=== PATIENT | female | born 2000 | race Caucasian/White ===

== ENCOUNTER 2020-07-06 12:31 | Emergency (ER) | payer MEDICAID ==
[~2020-07-06] VITALS: Ht 160 cm; Wt 56.8 kg
[2020-07-06 12:35] VITALS: BP 113/81
== END 2020-07-06 13:10 | disposition left against medical advice (07) ==
LOC: ER 12:32
DX: F41.9 Anxiety disorder, unspecified (principal); F34.9 Persistent mood [affective] disorder, unspecified; R45.1 Restlessness and agitation; Z72.89 Other problems related to lifestyle
CPT/HCPCS: 99281; 99283

== ENCOUNTER 2023-02-04 11:14 | Emergency (ER) | payer MEDICAID ==
[~2023-02-04] VITALS: Ht 165.1 cm; Wt 65.9 kg
[~2023-02-04 11:14] MED LIST: ANBESOL MM; HYDR50TA65 PO; NO HOME MEDS; PALI6TAB6 PO; TRAZ-256 PO
[2023-02-04 13:52] LABS: URINE HCG NEGATIVE (NEG)
[2023-02-04 14:06] LABS: URINE AMPHETAMINE SCREEN POSITIVE (Neg); URINE BARBITUATE SCREEN NEGATIVE (Neg); URINE BENZODIAZEPINES SCREEN NEGATIVE (Neg); URINE CANNABINOID SCREEN POSITIVE (Neg); URINE COCAINE SCREEN NEGATIVE (Neg); URINE METHADONE SCREEN NEGATIVE (Neg); URINE OPIATE SCREEN NEGATIVE (Neg); URINE PHENCYCLIDINE SCREEN NEGATIVE (Neg)
[2023-02-04] MEDS ORDERED: aripiprazole 400mg suspension ER syringe IM ONE (14:50)
[2023-02-04] MEDS ORDERED: AZIT250T83 PO (16:02)
[2023-02-04] MEDS ORDERED: ARIP15TA3 PO (16:02)
[2023-02-04 16:07] VITALS: BP 110/80; PULSE 102; RESP 16; TEMP 98.4; O2SAT 100
== END 2023-02-04 16:10 | disposition home or self-care (01) ==
LOC: ER 11:15
DX: F20.9 Schizophrenia, unspecified (principal); K04.7 Periapical abscess without sinus; F32.A Depression, unspecified; Z88.1 Allergy status to other antibiotic agents; Z88.8 Allergy status to other drugs, medicaments and biological substances
CPT/HCPCS: 80305; 81025; 99283

== ENCOUNTER 2023-05-16 18:37 | Emergency (ER) | payer MEDICAID ==
[~2023-05-16] VITALS: Ht 162.6 cm; Wt 68.0 kg
[~2023-05-16 18:37] MED LIST changes: +ARIP15TA3 PO
[2023-05-16] MEDS: aripiprazole 400mg suspension ER syringe IM ONE (23:51)
[2023-05-16 23:56] VITALS: BP 132/66; PULSE 95; RESP 18; TEMP 98.2; O2SAT 99
[2023-05-17] MEDS ORDERED: CLIN300C71 PO (00:06)
[2023-05-17] MEDS ORDERED: BENZ11.95 BU (00:06)
== END 2023-05-17 00:09 | disposition home or self-care (01) ==
LOC: ER 18:38
DX: F20.9 Schizophrenia, unspecified (principal); K08.89 Other specified disorders of teeth and supporting structures; Z88.1 Allergy status to other antibiotic agents; Z79.899 Other long term (current) drug therapy
CPT/HCPCS: 96372; 99283

== ENCOUNTER 2023-06-12 21:16 | Emergency (ER) | payer MEDICAID ==
[~2023-06-12] VITALS: Ht 162.6 cm; Wt 70.5 kg
[~2023-06-12 21:16] MED LIST changes: +BENZ11.95 BU
[2023-06-12 21:24] VITALS: BP 120/74; PULSE 116; RESP 18; TEMP 98.1; O2SAT 100
[2023-06-12 21:51] LABS: BASOPHILS # (AUTO) 0.1 X10'3 (0-0.2); BASOPHILS % (AUTO) 0.6 % (0-1); EOSINOPHILS # (AUTO) 0.2 X10'3 (0-0.9); EOSINOPHILS % (AUTO) 2.1 % (0-6); HEMATOCRIT 44.3 % (35.0-45.0); HEMOGLOBIN 14.9 g/dl (12.0-16.0); LYMPHOCYTES # (AUTO) 2.8 X10'3 (1.1-4.8); LYMPHOCYTES % (AUTO) 33.5 % (21-51); MEAN CORPUSCULAR HEMOGLOBIN 30.3 PG (27.0-31.0); MEAN CORPUSCULAR HGB CONC 33.5 g/dL (33.0-36.5); MEAN CORPUSCULAR VOLUME 90.5 FL (78-98); MEAN PLATELET VOLUME 7.3 FL (7.4-10.4); MONOCYTES # (AUTO) 0.6 X10'3 (0-0.9); NEUTROPHILS # (AUTO) 4.8 X10'3 (1.8-7.7); NEUTROPHILS % (AUTO) 56.8 % (42-75); PLATELET COUNT 440 X10'3 (140-440); RED CELL DISTRIBUTION WIDTH 13.1 % (11.5-14.5); WHITE BLOOD COUNT 8.5 X10'3 (4.5-11.0)
[2023-06-12 22:15] LABS: ALBUMIN 3.4 G/DL (3.4-5.0); ANION GAP 6 (8-16); BLOOD UREA NITROGEN 13 MG/DL (7-18); BUN/CREATININE RATIO 11.4 (10.0-20.0); CALCIUM 8.2 MG/DL (8.5-10.1); CHLORIDE 106 MMOL/L (99-107); CREATININE 1.14 MG/DL (0.40-0.90); GLUCOSE 89 MG/DL (70-104); POTASSIUM 3.5 MMOL/L (3.5-5.1); PRO BRAIN NATRIURETIC PEPTIDE 31 PG/ML (0-125); SODIUM 143 MMOL/L (135-145); TOTAL CARBON DIOXIDE 30.6 MMOL/L (24-32); eCRCL 66 ML/MIN; eGFR 59 ML/MIN
== END 2023-06-13 02:09 | disposition left against medical advice (07) ==
LOC: ER 21:17
DX: R07.89 Other chest pain (principal); R06.02 Shortness of breath; R22.1 Localized swelling, mass and lump, neck; Z53.21 Procedure and treatment not carried out due to patient leaving prior to being seen by health care provider
CPT/HCPCS: 36415; 71045; 80048; 83880; 84484; 85025; 93005; 99281

== ENCOUNTER 2023-10-01 10:40 | Emergency (ER) | payer MEDICAID ==
[~2023-10-01] VITALS: Ht 162.6 cm; Wt 68.4 kg
[2023-10-01 10:42] VITALS: TEMP 98.4
[2023-10-01] MEDS ORDERED: DOXY-460 PO (11:28)
[2023-10-01] MEDS: CefTRIAXone 1000mg IM Kit (w/lidocaine diluent) IM ONE (11:47)
[2023-10-01 12:36] VITALS: BP 117/68; PULSE 98; RESP 18; O2SAT 100
[2023-10-01 13:15] LABS: BASOPHILS % (AUTO) 0.6 % (0-1); EOSINOPHILS # (AUTO) 0.1 X10'3 (0-0.9); EOSINOPHILS % (AUTO) 0.8 % (0-6); HEMATOCRIT 41.6 % (35.0-45.0); HEMOGLOBIN 13.8 g/dl (12.0-16.0); LYMPHOCYTES # (AUTO) 2.7 X10'3 (1.1-4.8); MEAN CORPUSCULAR HEMOGLOBIN 30.1 PG (27.0-31.0); MEAN CORPUSCULAR HGB CONC 33.2 g/dL (33.0-36.5); MEAN CORPUSCULAR VOLUME 90.7 FL (78-98); MEAN PLATELET VOLUME 7.7 FL (7.4-10.4); MONOCYTES # (AUTO) 0.8 X10'3 (0-0.9); MONOCYTES % (AUTO) 9.3 % (2-12); NEUTROPHILS # (AUTO) 4.6 X10'3 (1.8-7.7); NEUTROPHILS % (AUTO) 56.3 % (42-75); PLATELET COUNT 436 X10'3 (140-440); RED BLOOD COUNT 4.59 X10'6 (4.20-5.60); RED CELL DISTRIBUTION WIDTH 12.9 % (11.5-14.5); WHITE BLOOD COUNT 8.1 X10'3 (4.5-11.0)
[2023-10-01 13:31] LABS: ALANINE AMINOTRANSFERASE 27 U/L (12-78); ALBUMIN 3.7 G/DL (3.4-5.0); ALBUMIN/GLOBULIN RATIO 0.9 (1.1-1.5); ALKALINE PHOSPHATASE 98 IU/L (46-116); ANION GAP 8 (8-16); ASPARTATE AMINO TRANSFERASE 13 U/L (10-37); BILIRUBIN,TOTAL 0.2 MG/DL (0.1-1.0); BLOOD UREA NITROGEN 9 MG/DL (7-18); BUN/CREATININE RATIO 8.7 (10.0-20.0); CALCIUM 9.6 MG/DL (8.5-10.1); CHLORIDE 102 MMOL/L (99-107); CREATININE 1.03 MG/DL (0.40-0.90); GLUCOSE 113 MG/DL (70-104); POTASSIUM 3.8 MMOL/L (3.5-5.1); SODIUM 139 MMOL/L (135-145); TOTAL CARBON DIOXIDE 29.1 MMOL/L (24-32); TOTAL PROTEIN 7.8 G/DL (6.4-8.2); eCRCL 73 ML/MIN; eGFR 66 ML/MIN
== END 2023-10-01 14:00 | disposition left against medical advice (07) ==
LOC: ER 10:41
DX: L03.115 Cellulitis of right lower limb (principal); T63.311A Toxic effect of venom of black widow spider, accidental (unintentional), initial encounter; M79.89 Other specified soft tissue disorders; F32.A Depression, unspecified; F28 Other psychotic disorder not due to a substance or known physiological condition; Z88.1 Allergy status to other antibiotic agents; Z79.2 Long term (current) use of antibiotics; Z79.899 Other long term (current) drug therapy; Y92.89 Other specified places as the place of occurrence of the external cause
CPT/HCPCS: 36415; 80053; 85025; 96372; 99283; J0696

== ENCOUNTER 2023-10-01 22:38 | Emergency (ER) | payer MEDICAID ==
[~2023-10-01 22:38] MED LIST changes: +DOXY-460 PO
== END 2023-10-01 23:58 | disposition home or self-care (01) ==
LOC: ER 22:38
DX: S80.861A Insect bite (nonvenomous), right lower leg, initial encounter (principal); Z88.1 Allergy status to other antibiotic agents; Z88.0 Allergy status to penicillin; Z53.21 Procedure and treatment not carried out due to patient leaving prior to being seen by health care provider; W57.XXXA Bitten or stung by nonvenomous insect and other nonvenomous arthropods, initial encounter; Y93.89 Activity, other specified; Y92.89 Other specified places as the place of occurrence of the external cause; Y99.8 Other external cause status

== ENCOUNTER 2023-10-13 08:45 | Emergency (ER) | payer MEDICAID ==
[~2023-10-13] VITALS: Ht 162.6 cm; Wt 66.6 kg
[~2023-10-13 08:45] MED LIST changes: -DOXY-460 PO
[2023-10-13 08:55] VITALS: BP 121/79; PULSE 104; RESP 18; TEMP 97.8; O2SAT 98
== END 2023-10-13 09:22 | disposition left against medical advice (07) ==
LOC: ER 08:45
DX: Z00.00 Encounter for general adult medical examination without abnormal findings (principal); F32.A Depression, unspecified; F20.9 Schizophrenia, unspecified; Z88.1 Allergy status to other antibiotic agents; Z79.899 Other long term (current) drug therapy
CPT/HCPCS: 99281

== ENCOUNTER 2024-03-15 15:17 | Emergency (ER) | payer MEDICAID ==
[~2024-03-15] VITALS: Ht 162.6 cm; Wt 57.2 kg
[2024-03-15 15:22] VITALS: BP 125/75; PULSE 111; RESP 16; TEMP 98.2; O2SAT 100
== END 2024-03-15 15:45 | disposition left against medical advice (07) ==
LOC: ER 15:17
DX: Z76.0 Encounter for issue of repeat prescription (principal); F20.9 Schizophrenia, unspecified; F44.81 Dissociative identity disorder; Z53.21 Procedure and treatment not carried out due to patient leaving prior to being seen by health care provider; Z88.1 Allergy status to other antibiotic agents; Z88.0 Allergy status to penicillin

== ENCOUNTER 2024-08-17 17:54 | Emergency (ER) | payer MEDICAID ==
[~2024-08-17] VITALS: Ht 162.6 cm; Wt 53.1 kg
--- NOTE | 2024-08-17 18:06 | Physician Documentation ---
History of Present Illness ~ Chief Complaint: Rash Stated Complaint: "SOME KIND OF INFECTION ALL OVER MY HEAD" Time Seen by MD: 18:04 Primary Medical Doctor: NONE HPI 24-year-old female presents to the ED with a complaint of the pustular like rash all over her scalp. She states this started two days ago. She denies any fevers. Does report that the rash is painful states she used a new hair product to dye here hair Day of Onset: August 17, 2024 Medication Reconciliation Allergies: Coded Allergies: amoxicillin (Verified Allergy, Severe, 03/15/24) Anaphylactic Uncoded Allergies: PENICILLIN (Allergy, Unknown, 06/12/23) Scheduled Aripiprazole* (Abilify*), 1 TAB PO DAILY Benzocaine/Menthol/Zinc Chlor (Orajel 3X Toothache-Gum Gel), 20 GR BU TID Benzoyl Peroxide (Benzoyl Peroxide), 1 APPLIC TOP Q12H Ciprofloxacin HCl (Ciprofloxacin HCl), 1 TAB PO Q12H Paliperidone (Paliperidone ER), 1 TAB PO DAILY Trazodone HCl (Trazodone HCl), 1 TAB PO HS Scheduled PRN Benzocaine* (Anbesol*), 1 APPLIC MM QID PRN for mouth sores Hydroxyzine HCl (Hydroxyzine HCl), 1 TAB PO DAILY PRN for Anxiety or Insomnia Miscellaneous Medications Home Med List (No Home Medications), (Reported) Past Medical History Past Medical History: No Pertinent History, Depression, Psychosis, Schizophrenia Past Surgical History: noncontributory Alcohol Use: Sober Lives with: Mother Lives In: Home Occupation: child Physical Exam Vital Signs: Temperature: 98.8, Heart Rate: 101, Respiratory Rate: 16, BP: 121/90, Pulse Oximetry: 98, Weight: 53.100 Oxygen Flow Rate: 0 Physical Exam General: Alert, no apparent distress. HEENT: PERRL, EOMI, no injection, moist mucous membranes. Pustular rash all encompassing the patient's scalp painful to touch Neurologic: Oriented x4. Psychiatric: Normal mood and affect. Skin: Normal color, warm and dry. No edema, no ecchymosis. Progress Results/Orders Results/Orders Completed Orders - TROY FAY NP Ciprofloxacin Tablet (Cipro Tablet) (08/17/24 18:10) Medications Received in ER Medications (Trade) Dose Ordered Sig/Claudia Route PRN Reason Start Time Stop Time Status Last Admin Dose Admin (Cipro tablet) 250 mg ONCE ONCE PO 08/17/24 18:10 08/17/24 18:14 DC 08/17/24 18:26 250 MG Vital Signs 08/17/24 08/17/24 17:55 18:32 Temp 98.8 98.9 Pulse 101 99 Resp 16 16 B/P (MAP) 121/90 120/89 Pulse Ox 98 99 O2 Flow Rate 0 Medical Decision Making Findings Treat this patient for [id number] folliculitis starting her on cipr ofloxacin Differential Dx:Considerations: Include: Abscess, AIDS/HIV, Anthrax (cutaneous), Atopic dermatitis, Candidiasis, Contact dermatitis, Drug reaction, Erythema multiforme, Erysipelas, Gangrene, Herpes zoster, Herpes simplex, Hi dradenitis suppurativa, Impetigo, Intertrigo, Lymes disease, Molluscum contagiosum, Osteomyelitis, Pediculosis, Pityriasis rosea, Psoriaisis, RMSF, Rosacea, Scabies, Scarlet fever, Tinea, Urticaria, Varicella, Viral exanthema, Other Departure Disposition: HOME / SELF CARE / HOMELESS Impression: Primary Impression: Folliculitis Condition: Stable Discharge Instructions: Folliculitis Referrals: NO PRIMARY CARE PROVIDER (PCP) Prescriptions Benzoyl Peroxide (Benzoyl Peroxide) 5 % Cleanser 1 APPLIC TOP Q12H for 30 Days, #236 GM 0 Refills Prov: TROY FAY NP 08/17/24 Ciprofloxacin HCl (Ciprofloxacin HCl) 500 Mg Tab 1 TAB PO Q12H for 10 Days, #20 TAB Prov: TROY FAY NP 08/17/24 Education Educated: Patient Educated regarding: diagnosis Signature Scribe Signature: t Attestation: The note accurately reflects work and decisions made by me.Troy Bates NP 08/17/24 23:55 TROY FAY NP August 17, 2024 18:05
[2024-08-17] MEDS ORDERED: CIPR-202 PO (18:16)
[2024-08-17] MEDS ORDERED: BENZ142C9 TOP (18:17)
[2024-08-17] MEDS: ciprofloxacin 250mg tablet PO ONE (18:26)
[2024-08-17 18:32] VITALS: BP 120/89; PULSE 99; RESP 16; TEMP 98.9; O2SAT 99
== END 2024-08-17 18:33 | disposition home or self-care (01) ==
LOC: ER 17:54
DX: L73.9 Follicular disorder, unspecified (principal); Z88.1 Allergy status to other antibiotic agents; Z79.899 Other long term (current) drug therapy
CPT/HCPCS: 99283

== ENCOUNTER 2024-09-17 22:33 | Emergency (ER) | payer MEDICAID ==
[~2024-09-17] VITALS: Ht 162.6 cm; Wt 59.1 kg
[~2024-09-17 22:33] MED LIST changes: +BENZ142C9 TOP
[2024-09-18] MEDS: HYDROcodone/acetaminophen 10/325mg tab PO ONE (01:48)
--- NOTE | 2024-09-18 02:20 | Physician Documentation ---
History of Present Illness ~ Chief Complaint: Vaginal pain Stated Complaint: ABCESS Time Seen by MD: 02:17 OK to notify your PCP?: Yes Primary Medical Doctor: NONE Source: patient, RN/MD, RN notes reviewed, old records Mode of Arrival: POV Exam Limitations: no limitations HPI 24 year old female seen in bed 18 presents to the emergency department complaining of vaginal pain that has been present for 4 days. She states that she has an abscess to her vagina. She denies ay discharge to the site but endorses a foul smelling odor. Patient is unable to state her last menstrual period as she states she has an IUD which causes her not to menstruate. Patient denies any other associated symptoms at this time. Patient denies any other alleviating or exacerbating factors. Medication Reconciliation Allergies: Coded Allergies: amoxicillin (Verified Allergy, Severe, 09/17/24) Anaphylactic Penicillins (Unverified Allergy, Unknown, 09/17/24) Scheduled Aripiprazole* (Abilify*), 1 TAB PO DAILY Benzocaine/Menthol/Zinc Chlor (Orajel 3X Toothache-Gum Gel), 20 GR BU TID Benzoyl Peroxide (Benzoyl Peroxide), 1 APPLIC TOP Q12H Paliperidone (Paliperidone ER), 1 TAB PO DAILY Sulfamethoxazole/Trimethoprim (Bactrim Ds Tablet), 1 TAB PO Q12H Trazodone HCl (Trazodone HCl), 1 TAB PO HS Scheduled PRN Benzocaine* (Anbesol*), 1 APPLIC MM QID PRN for mouth sores Hydroxyzine HCl (Hydroxyzine HCl), 1 TAB PO DAILY PRN for Anxiety or Insomnia Miscellaneous Medications Home Med List (No Home Medications), (Reported) Past Medical History Past Medical History: No Pertinent History, Depression, Psychosis, Schizophrenia Past Surgical History: noncontributory Alcohol Use: Sober Lives with: Mother Lives In: Home Occupation: child Review of Systems All Other Systems at this time: Reviewed and Negative ROS As stated above in the HPI, otherwise all systems are reviewed and negative. Physical Exam Vital Signs: RN Vital Signs have been reviewed: Yes, Temperature: 98.6, Source: Oral, Heart Rate: 113, Respiratory Rate: 16, BP: 130/87, Pulse Oximetry: 100, Weight: 59.090 Pulse Oximetry Reflects: adequate oxygenation Physical Exam General: The patient is well developed, well nourished, nontoxic appearing and is in no acute distress. Skin: [place], warm and dry with no rashes. HEENT: Head was normocephalic and atraumatic. Eyes - pupils equal, round, reactive to light and accommodation. Extraocular movements were intact. Conjunctivae were nonicteric. Ears - bilateral tympanic membranes were normal. The mouth and oropharynx were clear with moist mucous membranes. There were no pharyngeal exudates or erythema. Neck: Supple and nontender. There was no jugular venous distention, lymphadenopathy, thyromegaly or masses. Chest: Clear to auscultation bilaterally without wheezes, rales or rhonchi. No accessory muscle use. No dullness to percussion. Heart: Rapid heart rate. S1, S2. No murmurs. Palpation of the chest wall was normal. No rubs or thrills. Abdomen: Soft, nontender and nondistended. Positive bowel sounds. No guarding or rebound. No hepatosplenomegaly or palpable masses. Extremities: No cyanosis, clubbing or edema. The patient moves all extremities. Pulses were equal and symmetric. Neurologic: Cranial nerves II-XII were intact. Sensation was intact to light touch throughout. Motor strength was 5/5 in all four extremities. Deep tendon reflexes were intact in both upper and lower extremities. Psychologic: The patient was oriented to person, place and time. The patient demonstrated appropriate judgement and insight. : Left vaginal wall inferior inner labia is a 4 by 3 cm fluctuate mass. Procedures Additional Procedures Additional Procedures: Other Progress Progress Note Procedure note: Incision and drainage. R bartholin's cyst swelling was prepped and draped in normal sterile fashion. 5mL of lidocaine 1% was injected subcutaneously resulting in good local anesthesia. An 11 blade scalpel was used to make a 1cm incision in the L-sided bartholin cyst resulting in several CC purulent and bloody drainage. A small amount of gauze tape was packed into the wound cavity. The patient tolerated the procedure well and there were no complications. Results/Orders Results/Orders Completed Orders - MAURILIO VIDES MD Lidocaine 1% 30ml Vial (Xylocaine 1% Via (09/18/24 06:46) Vital Signs 09/17/24 09/18/24 09/18/2409/18/25 22:36 01:48 02:45 06:58 Temp 98.6 98.6 Pulse 113 92 Resp 18 16 18 14 B/P (MAP) 130/87 102/62 (75) Pulse Ox 100 100 O2 Flow Rate 0 09/18/24 10:17 Temp 98.6 Pulse 89 Resp 14 B/P (MAP) 90/57 (68) Pulse Ox 98 O2 Flow Rate 0 Re-Evaluation Re-Evaluation : Progress signed out to me by Dr. Austin. Performed bedside I&D of bartholin cyst resulting in purulent output. Do not have word catheter, packed with small amount of gauze packing. Rx bactrim, return precautions. Medical Decision Making Additional Comment Ddx = bartholin cyst, perirectal abscess, pilonidal cyst, ingrown hair Departure Disposition: HOME / SELF CARE / HOMELESS Impression: Primary Impression: Bartholin cyst Condition: Stable Discharge Instructions: Bartholin's Cyst and Abscess Referrals: NO PRIMARY CARE PROVIDER (PCP) Prescriptions Sulfamethoxazole/Trimethoprim (Bactrim Ds Tablet) 800 Mg-160 Mg Tablet 1 TAB PO Q12H for 7 Days, #14 TAB Prov: MAURILIO VIDES MD 09/18/24 Education Educated: Patient, Family Educated regarding: diagnosis, treatment, prognosis, need for follow up Signature Scribe Signature: Scribed for Efrain Austin MD by Oc Walter . 09/18/24 02:38 Attestation: The note accurately reflects work and decisions made by me.Efrain Austin MD 09/18/24 02:20 EFRAIN AUSTIN MD Sep 18, 2024 02:20 OC KELLY Sep 18, 2024 02:39 MAURILIO VIDES MD Sep 18, 2024 07:25
[2024-09-18] MEDS: LORazepam 1 MG tablet PO ONE (02:43)
[2024-09-18] MEDS: DOXYCYCLINE 100MG CAPSULE PO STA (02:43)
[2024-09-18] MEDS: diphenhydrAMINE 25mg capsule PO ONE (02:43)
[2024-09-18] MEDS: azithromycin 250mg tablet PO ONE (02:44)
[2024-09-18] MEDS: CefTRIAXone 1000mg IM Kit (w/lidocaine diluent) IM ONE (02:45)
[2024-09-18] MEDS: HYDROmorphone 1 mg/ml syringe IM ONE (02:45)
[2024-09-18] MEDS: LIDOcaine 1% W/epiNEPHrine 1:200,000 10ml vial IJ ONE (03:05)
[2024-09-18] MEDS: LIDOcaine 1% W/epiNEPHrine 1:100,000 20ml vial IJ ONE (04:18)
[2024-09-18] MEDS: VANCOMYCIN 2GM/400ML H20 (PEG) 400 ML IV ONE (04:19)
[2024-09-18] MEDS: LIDOcaine 1% 30ml preserv. free vial SQ STA (07:24)
[2024-09-18] MEDS ORDERED: SULF1TAB49 PO (07:25)
[2024-09-18 10:17] VITALS: TEMP 98.6
[2024-09-18 11:40] VITALS: BP 103/63; PULSE 90; RESP 15; O2SAT 99
== END 2024-09-18 11:47 | disposition home or self-care (01) ==
LOC: ER 22:34
DX: N75.0 Cyst of Bartholin's gland (principal); F32.A Depression, unspecified; F20.9 Schizophrenia, unspecified; F10.90 Alcohol use, unspecified, uncomplicated; Z88.0 Allergy status to penicillin; Y90.9 Presence of alcohol in blood, level not specified
CPT/HCPCS: 56420; 96372; 99284; J0696; J1171; Q0163

== ENCOUNTER 2024-10-16 03:24 | Emergency (ER) | payer MEDICAID ==
[2024-10-16 03:27] VITALS: PULSE 134; O2SAT 97
--- NOTE | 2024-10-16 03:43 | Physician Documentation ---
HPI ~ General Chief Complaint: Medication Request Stated Complaint: MED REQ Time Seen by MD: 03:42 OK to notify your PCP?: Yes Primary Medical Doctor: NONE Source: patient, family, RN/MD, RN notes reviewed, old records Mode of Arrival: POV Exam Limitations: no limitations History of Present Illness HPI Comments 24 year old female seen in triage presents to the emergency department for complaints of medical non compliance. Her boyfriend states that she has missed medications recently. That being her abilify shot. Patient is very distressed on presentation and due to this was unable to answer questions. Per boyfriend there has been recent meth use. Medication Reconciliation Allergies: Coded Allergies: amoxicillin (Verified Allergy, Severe, 10/16/24) Anaphylactic Penicillins (Unverified Allergy, Unknown, 10/16/24) Scheduled Aripiprazole* (Abilify*), 1 TAB PO DAILY Benzocaine/Menthol/Zinc Chlor (Orajel 3X Toothache-Gum Gel), 20 GR BU TID Benzoyl Peroxide (Benzoyl Peroxide), 1 APPLIC TOP Q12H Paliperidone (Paliperidone ER), 1 TAB PO DAILY Trazodone HCl (Trazodone HCl), 1 TAB PO HS Scheduled PRN Benzocaine* (Anbesol*), 1 APPLIC MM QID PRN for mouth sores Hydroxyzine HCl (Hydroxyzine HCl), 1 TAB PO DAILY PRN for Anxiety or Insomnia Miscellaneous Medications Home Med List (No Home Medications), (Reported) Past Medical History Past Medical History: No Pertinent History, Depression, Psychosis, Schizophrenia Past Surgical History: noncontributory Alcohol Use: Sober Lives with: Mother Lives In: Home Occupation: child Review of Systems All Other Systems at this time: Reviewed and Negative ROS As stated above in the HPI, otherwise all systems are reviewed and negative. Physical Exam Physical Exam Vital Signs: RN Vital Signs have been reviewed: Yes, Temperature: 97.0, Source: Temporal, Heart Rate: 134, Respiratory Rate: 16, Pulse Oximetry: 97 Oxygen Flow Rate: 0 Pulse Oximetry Reflects: adequate oxygenation Physical Exam General: Patient was distressed and having irrational thoughts. The patient is well developed, well nourished, nontoxic appearing and is in no acute distress. Skin: [place], warm and dry with no rashes. HEENT: Head was normocephalic and atraumatic. Eyes - pupils equal, round, reactive to light and accommodation. Extraocular movements were intact. Conjunctivae were nonicteric. Ears - bilateral tympanic membranes were normal. The mouth and oropharynx were clear with moist mucous membranes. There were no pharyngeal exudates or erythema. Neck: Supple and nontender. There was no jugular venous distention, lymphadenopathy, thyromegaly or masses. Chest: Clear to auscultation bilaterally without wheezes, rales or rhonchi. No accessory muscle use. No dullness to percussion. Heart: Rapid heart rate. S1, S2. No murmurs. Palpation of the chest wall was normal. No rubs or thrills. Abdomen: Soft, nontender and nondistended. Positive bowel sounds. No guarding or rebound. No hepatosplenomegaly or palpable masses. Extremities: No cyanosis, clubbing or edema. The patient moves all extremities. Pulses were equal and symmetric. Neurologic: Cranial nerves II-XII were intact. Sensation was intact to light touch throughout. Motor strength was 5/5 in all four extremities. Deep tendon reflexes were intact in both upper and lower extremities. Psychologic: The patient was oriented to person, place and time. The patient demonstrated appropriate judgement and insight. Progress Results/Orders Reviewed/noted all lab results: Yes Results/Orders Completed Orders - EFRAIN LUNSFORD MD Aripiprazole Tablet (Abilify Tablet) (10/16/24 03:50) Paliperidone Er Tablet (Paliperidone Er) (10/16/24 03:50) Trazodone Tablet (Desyrel Tablet) (10/16/24 03:50) Hydroxyzine Tablet (Atarax Tablet) (10/16/24 03:50) Haloperidol Lact. (Haldol) (10/16/24 04:20) Diphenhydramine Inj (Benadryl Inj.) (10/16/24 04:20) Lorazepam Inj (Ativan Inj) (10/16/24 04:20) Medications Received in ER Medications (Trade) Dose Ordered Sig/Claudia Route PRN Reason Start Time Stop Time Status Last Admin Dose Admin (Abilify tablet) 15 mg ONCE PO 10/16/24 03:50 10/16/24 04:22 DC 10/16/24 04:06 15 MG (Paliperidone Er) 6 mg ONCE PO 10/16/24 03:50 10/16/24 04:22 DC 10/16/24 04:06 6 MG (Desyrel tablet) 100 mg ONCE PO 10/16/24 03:50 10/16/24 04:22 DC 10/16/24 04:05 100 MG (Atarax tablet) 50 mg ONCE ONCE PO 10/16/24 03:50 10/16/24 03:51 DC 10/16/24 04:05 50 MG Vital Signs 10/16/24 10/16/24 10/16/24 03:27 04:09 04:15 Temp 97.0 97.0 Pulse 134 Resp 16 16 B/P (MAP) Pulse Ox 97 O2 Flow Rate 0 Re-Evaluation Re-Evaluation : Re-Evaluation: Improved Progress Patient was seen and examined. Patient is given reassurance. Patient is quite psychotic. Took some convincing for the patient to start her medications family has a safety plan they brought her in for the patient to start her medications. Patient was somewhat resistant but after some convincing ultimately she was started her meds prescription was written for the same. She was told to follow up with mental health on Friday otherwise if she decompensates stopped taking her medications does not feel her meds and decompensates he needs to come back for acute psychiatric hold. Otherwise patient has been known to use methamphetamine. She has no other complaints at this time. Medical Decision Making Additional info obtained from: old records Differential Dx:Considerations: Include: Adverse circumstances, Economic, Psychosocial, Medical services unavail., Medication refill, Medication non- compliance, Other Departure Time of Disposition: 03:59 Disposition: HOME / SELF CARE / HOMELESS Impression: Primary Impression: Acute psychosis Additional Impressions: Methamphetamine abuse Medical non-compliance Condition: Stable Discharge Instructions: Medicine Refill at the Emergency Department Referrals: NO PRIMARY CARE PROVIDER (PCP) Prescriptions Aripiprazole* (Abilify*) 15 Mg Tab 1 TAB PO DAILY for 14 Days, #14 TAB 0 Refills Prov: EFRAIN LUNSFORD MD 10/16/24 Hydroxyzine HCl (Hydroxyzine HCl) 50 Mg Tablet 1 TAB PO DAILY PRN for Anxiety or Insomnia for 30 Days, #30 TAB 0 Refills Prov: EFRAIN LUNSFORD MD 10/16/24 Paliperidone (Paliperidone ER) 6 Mg Tab.er.24 1 TAB PO DAILY for 5 Days, #5 TAB 0 Refills Prov: EFRAIN LUNSFORD MD 10/16/24 Trazodone HCl (Trazodone HCl) 100 Mg Tablet 1 TAB PO HS for 30 Days, #30 TAB 0 Refills Prov: EFRAIN LUNSFORD MD 10/16/24 Education Educated: Patient, Family Educated regarding: diagnosis, treatment, prognosis, need for follow up Signature Scribe Signature: Scribed for Efrain Lunsford MD by Oc Walter . 10/16/24 04:00 Attestation: The note accurately reflects work and decisions made by me.Efrain Lunsford MD 10/16/24 03:43 EFRAIN LUNSFORD MD Oct 16, 2024 03:43 OC KELLY Oct 16, 2024 04:00
[2024-10-16] MEDS ORDERED: TRAZ-256 PO (03:52)
[2024-10-16] MEDS ORDERED: ARIP15TA3 PO (03:52)
[2024-10-16] MEDS ORDERED: HYDR50TA65 PO (03:52)
[2024-10-16] MEDS ORDERED: PALI6TAB6 PO (03:52)
[2024-10-16] MEDS: PALIPERIDONE 3 MG TAB.ER.24 PO SCH (04:06)
[2024-10-16 04:09] VITALS: RESP 16
[2024-10-16 04:15] VITALS: TEMP 97
[2024-10-16] MEDS ORDERED: haloperidol lactate 5mg/ml inj IM ONE (04:20)
== END 2024-10-16 04:22 | disposition home or self-care (01) ==
LOC: ER 03:24
DX: F15.10 Other stimulant abuse, uncomplicated (principal); F23 Brief psychotic disorder; Z88.1 Allergy status to other antibiotic agents; Z79.899 Other long term (current) drug therapy; Z88.0 Allergy status to penicillin; Z91.199 Patient's noncompliance with other medical treatment and regimen due to unspecified reason
CPT/HCPCS: 99284; Q0177